=== PATIENT | male | born 1985 ===

== ENCOUNTER 2018-08-19 07:50 | Day surgery (SDC) | payer OTHER ==
[~2018-08-19 07:50] MED LIST: Acetaminophen TAB* 325 MG PO ONE; Buffered Lidocaine 0.9% SYRIN* 5 ML/SYR SYRINGE INTRADERM ONE; Gabapentin CAP(*) 300 MG PO ONE; Lactated Ringers 1000 ML Bag* 1,000 ML IV SCH
[2018-08-19] MEDS ORDERED: Famotidine IV* 10 MG/ML 2 ML (20 mg) ONE (08:31)
[2018-08-19] MEDS ORDERED: fentaNYL* 50 MCG/ML 2 ML VIAL (100 MCG VIAL) ONE ×3 (08:31→11:49)
[2018-08-19] MEDS ORDERED: Midazolam* 1 MG/ML 2 ML VIAL (2 MG) ONE (08:31)
[2018-08-19] MEDS ORDERED: fentaNYL* 50 MCG/ML 2 ML VIAL (100 MCG VIAL) IV PRN (08:32)
[2018-08-19] MEDS ORDERED: Naloxone* 0.4 MG/ML 1 ML VIAL IV PRN (08:32)
[2018-08-19] MEDS ORDERED: Ondansetron INJ* 2 MG/ML VIAL IV PRN (08:32)
[2018-08-19] MEDS ORDERED: Levalbuterol 1.25MG/0.5ML NEB INH PRN (08:32)
[2018-08-19] MEDS ORDERED: HYDROcodone/ACETAMIN 5-325 MG* 1 TAB PO PRN ×2 (08:32)
[2018-08-19] MEDS ORDERED: PROCHLORPERAZINE INJ 5 MG/ML 2 ML VIAL IV PRN (08:32)
[2018-08-19] MEDS ORDERED: Acetaminophen TAB* 325 MG PO PRN (08:32)
[2018-08-19] MEDS ORDERED: DiMENhydriNATE IV* 50 MG/ML VIAL IV PUSH PRN (08:32)
[2018-08-19] MEDS ORDERED: diPHENhydraMINE IV* 50 MG/ML 1 ml VIAL (BENADRYL) IV PRN (08:32)
[2018-08-19] MEDS ORDERED: Gabapentin CAP(*) 300 MG ONE (08:37)
[2018-08-19] MEDS ORDERED: Acetaminophen TAB* 325 MG ONE (08:37)
[2018-08-19] MEDS ORDERED: ceFAZolin 2 GM PREMIX in ORs 2 GM/50 ML BAG IVPB ONE (08:37)
[2018-08-19] MEDS ORDERED: Lidocaine 1% INJ* 10 MG/ML 30 ML SDV ONE (08:56)
[2018-08-19] MEDS ORDERED: Bupivacaine 0.5% W/EPI SDV* 30 ML VIAL ONE (08:56)
[2018-08-19] MEDS ORDERED: Lidocaine 2% PF * 5 ML VIAL ONE (09:24)
[2018-08-19] MEDS ORDERED: Ketorolac INJ* 30 MG/ML 1 ML VIAL ONE (09:36)
[2018-08-19] MEDS ORDERED: Propofol* 10 MG/ML 20 ML BTL ONE (09:36)
[2018-08-19] MEDS ORDERED: Dexamethasone IV* 4 MG/ML 1 ML (4 MG) ONE (09:36)
[2018-08-19] MEDS ORDERED: Ondansetron INJ* 2 MG/ML VIAL ONE (10:49)
[2018-08-19] MEDS ORDERED: HYDROcodone/ACETAMIN 5-325 MG* 1 TAB ONE (11:49)
[2018-08-19 12:32] VITALS: BP 126/80
--- NOTE | 2018-08-20 02:05 | OP ---
DATE OF OPERATION: 08/19/18 [facility] DATE OF : 85 SURGEON: Boo Dan MD BATCH ATTENDANT: Lilibeth Puentes NP ANESTHESIOLOGIST: Dr. Ortega. ANESTHESIA: General with local. PRE-OP DIAGNOSES: 1. Umbilical hernia. 2. Right inguinal hernia. POST-OP DIAGNOSES: 1. Umbilical hernia. 2. Right direct inguinal hernia. OPERATIVE PROCEDURE: 1. Open repair with mesh of an umbilical hernia. 2. Open repair of right inguinal hernia with mesh. WOUND CLASSIFICATION: I. DRAINS: None. COMPLICATIONS: None. SPECIMENS: None. DESCRIPTION OF PROCEDURE: Written informed consent was obtained, both the umbilicus and the right groin were marked with indelible ink and preoperative antibiotics were administered. The patient was taken to the operating room and placed in the supine position. Time-out verification was completed. Initially, the umbilical hernia was repaired first. 1% lidocaine was infiltrated extensively around the umbilical area and a semicircle incision was made just below the umbilicus, carried down to the fascia. The overlying umbilical skin was then excised sharply off the protruding preperitoneal fat extending through a fascial defect which was about 2 cm in size. We were able to reduce this fat-containing hernia back into the preperitoneal space and the preperitoneal space was developed with a combination of sharp and blunt dissection in preparation for mesh placement just below the [place] fascia. A 6.4-cm diameter Bard hernia mesh was then placed and sutured into position with two separate 0 Vicryl horizontal mattress sutures placed inferiorly and superiorly on the fascia. The [place] mesh was then closed with several interrupted 0 Ethibond sutures. Hemostasis was assured. The umbilical skin was sutured to the fascia. The wound was then closed in layers of 3-0 and 4-0 Vicryl sutures and Steri-Strips and sterile dressings were applied. Time-out was then called once again with attention to the right lower groin incision. Additional 1% lidocaine was infiltrated and an oblique incision was made several fingerbreadths above the inguinal ligament and carried down to the inguinal crease and then carried down to Ileana's fascia. External oblique aponeurosis was identified and was opened at the direction of its fibers to expose the underlying inguinal floor. The spermatic cord was encircled with one-quarter inch [place] drain at the pubic tubercle. It was noted that there was a large direct space hernia with really no floor and a hernia sac which was from the surrounding cremasteric muscles and was imbricated with a running 3-0 Vicryl suture. There was no evidence of an indirect inguinal hernia and the internal ring was of expected normal caliber. Next, the pre-cut ProGrip Covidien mesh was then placed and sutured to the pubic tubercle with a 0 Vicryl suture. The ProGrip material was then adhered to the conjoint tendon superiorly, the musculature laterally, inguinal ligament inferiorly. The internal ring was also nicely reconstructed. The mesh covered the direct space nicely. Hemostasis was assured and additional lidocaine was infiltrated. The external oblique aponeurosis was closed with running 3-0 Vicryl suture. The Ileana's fascia was closed with running 3-0 Vicryl suture. The skin was approximated with subcuticular 4-0 Vicryl suture. Steri-Strips and sterile dressings were applied. The patient tolerated the procedure well, was taken to the recovery room in stable condition. [id number] #: [id number] [place]
== END 2018-08-19 13:08 | disposition home or self-care (01) ==
LOC: OR 07:50
PROVIDERS: ATTEND Surgery
DX: K42.9 Umbilical hernia without obstruction or gangrene (principal); K40.90 Unilateral inguinal hernia, without obstruction or gangrene, not specified as recurrent; Z72.0 Tobacco use; J45.909 Unspecified asthma, uncomplicated
CPT/HCPCS: A9270-GY; C1781; J0690; J1100; J1885; J2250; J2405; J2704; J3010